=== PATIENT | female | born 1990 | race Caucasian/White ===

== ENCOUNTER 2017-03-07 22:09 | Emergency (ER) | payer MEDICAID ==
[2017-03-07] MEDS ORDERED: Sodium Chloride 0.9% 1,000 ML IV ONE (22:34)
[2017-03-07 22:58] LABS: BASO # 0.1 K/uL (0.0-0.2); BASO % 0.7 % (0.0-2.0); EOS # 0.4 K/uL (0.0-0.7); EOS % 4.7 % (0.0-4.0); HEMATOCRIT 30.9 % (34.0-47.0); LYMPH # 2.9 K/uL (1.0-4.3); LYMPH % 30.8 % (20.0-40.0); MEAN CORPUSCULAR HEMOGLOBIN 30.6 pg (27.0-31.0); MEAN CORPUSCULAR HGB CONC 34.7 g/dL (33.0-37.0); MONO # 0.7 K/uL (0.0-0.8); MONO % 7.7 % (0.0-10.0); NRBC % 0.1 % (0.0-2.0); WHITE BLOOD COUNT 9.3 K/uL (4.8-10.8)
[2017-03-07 23:07] LABS: CHLORIDE 102 mmol/L (98-107); POTASSIUM 3.6 mmol/L (3.6-5.2); SODIUM 138 mmol/L (132-148)
[2017-03-07 23:08] LABS: INR 0.9
[2017-03-07 23:09] LABS: ALB/GLOB RATIO 1.1 (1.0-2.1); ALKALINE PHOSPHATASE 53 U/L (38-126); ALT/SGPT 26 U/L (9-52); AST/SGOT 19 U/L (14-36); BILIRUBIN,TOTAL 0.4 mg/dL (0.2-1.3); BLOOD UREA NITROGEN 7 mg/dL (7-17); CARBON DIOXIDE 20 mmol/L (22-30); GFR AFRICAN-AMERICAN > 60; TOTAL PROTEIN 6.9 g/dL (6.3-8.3)
[2017-03-07 23:10] LABS: CALCIUM 8.5 mg/dl (8.6-10.4); GLUCOSE,RANDOM 93 mg/dL (65-105); URINE BILIRUBIN NEGATIVE (NEGATIVE); URINE BLOOD NEGATIVE (NEGATIVE); URINE COLOR Colorless (YELLOW); URINE GLUCOSE (UA) NORMAL (Normal); URINE KETONE NEGATIVE (NEGATIVE); URINE LEUKOCYTE ESTERASE NEG Leu/uL (Negative); URINE PROTEIN NEGATIVE (NEGATIVE); URINE UROBILINOGEN NORMAL mg/dL (0.2-1.0)
--- NOTE | 2017-03-07 23:44 | C.PDOC ---
History Of Present Illness 26 year old female presents to the ED with complaints of lower abdominal cramping "for some time." She is 17 weeks , , and recently had a normal visit at OB's office. Patient denies vaginal bleeding or other complaints at this time. Time Seen by Provider: 03/07/17 23:15 Chief Complaint (Nursing): Abdominal Pain History Per: Patient History/Exam Limitations: no limitations Onset/Duration Of Symptoms: Persistent Current Symptoms Are (Timing): Still Present Location Of Pain/Discomfort: Suprapubic Radiation Of Pain To:: None Quality Of Discomfort: Cramping Associated Symptoms: denies: Fever, Chills, Nausea, Vomiting, Urinary Symptoms Exacerbating Factors: None Alleviating Factors: None Recent travel outside of the [place]: No Abnormal Vaginal Bleeding: No : 3 Para: 2 Past Medical History Reviewed: Historical Data, Nursing Documentation, Vital Signs Vital Signs: Last Vital Signs Temp 97.5 F L 03/08/17 01:04 Pulse 87 03/08/17 01:04 Resp 19 03/08/17 01:04 BP 125/78 03/08/17 01:04 Pulse Ox 100 03/08/17 01:04 - Medical History PMH: Anemia Surgical History: Hernia Repair, Tonsillectomy Family History: States: Unknown Family Hx - Social History Hx Tobacco Use: No Hx Alcohol Use: Yes Hx Substance Use: No - Immunization History Hx Tetanus Toxoid Vaccination: No Hx Influenza Vaccination: No Hx Pneumococcal Vaccination: No Review Of Systems Constitutional: Negative for: Fever, Chills Cardiovascular: Negative for: Chest Pain, Palpitations Respiratory: Negative for: Cough, Shortness of Breath Gastrointestinal: Positive for: Abdominal Pain (lower abdominal cramping ). Negative for: Nausea, Vomiting, Diarrhea Genitourinary: Negative for: Vaginal Bleeding Physical Exam - Physical Exam Appears: Non-toxic, No Acute Distress Skin: Warm, Dry Head: Atraumatic, Normacephalic Eye(s): bilateral: Normal Inspection Oral Mucosa: Moist Neck: Supple Chest: Symmetrical, No Deformity Cardiovascular: Rhythm Regular, No Murmur Respiratory: Normal Breath Sounds, No Rales, No Rhonchi, No Wheezing Gastrointestinal/Abdominal: Soft, Tenderness (minimal suprapubic tenderness), No Distention, No Guarding, No Rebound Extremity: Normal ROM, No Tenderness Neurological/Psych: Oriented x3 Gait: Steady ED Course And Treatment - Laboratory Results Result Diagrams: 03/07/17 22:55 03/07/17 22:55 O2 Sat by Pulse Oximetry: 98 (room air ) Progress Note: Labs and pelvis US was ordered. Patient refused any pain medications in ED and was given IV fluids. Disposition - Disposition Disposition: HOME/ ROUTINE Disposition Time: 01:00 Condition: STABLE Additional Instructions: please follow up with your doctor. return to er with worsening symptoms or concerns. Instructions: Threatened Miscarriage (ED), Acute Abdominal Pain (ED) Forms: [facility] (Frisian) - Clinical Impression Clinical Impression: Abdominal pain, Threatened miscarriage - Scribe Statement The provider has reviewed the documentation as recorded by the Scribe Abigail Paz All medical record entries made by the Barbieibe were at my direction and personally dictated by me. I have reviewed the chart and agree that the record accurately reflects my personal performance of the history, physical exam, medical decision making, and the department course for this patient. I have also personally directed, reviewed, and agree with the discharge instructions and disposition.
--- NOTE | 2017-03-08 00:47 | US ---
EXAM: US Uterus, Limited CLINICAL HISTORY: 26 years old, female; Pain; complicated by abdominal or pelvic pain; Lower; Second trimester; Gestational age or lmp: Unknown lmp; ; Additional info: Suprapubic pain, TECHNIQUE: Real-time ultrasound of the maternal uterus (limited) with image documentation. COMPARISON: No relevant prior studies available. FINDINGS: Fetus: A single live intrauterine gestation is present. Estimated age based on the current measurements is 17.4 weeks +/-9 days. The limited visualized anatomy appears within normal limits. Position: A venous cantrell is present within the placenta which measures 1.5 x 1.4 x 2.9 CM. position is variable. Heart rate: heart motion observed at 154-159 beats per minute. Placenta: The placenta is anterior. No previa. Cervix: Cervix measures at least 3.3 CM and appears closed. Adnexa: Left ovary measures 3.3 x 2.2 x 3.3 CM. Right ovary measures 2.0 x 2.5 x 2.3 CM. IMPRESSION: 1. Cervix measures at least 3.3 CM and appears closed. 2. A single live intrauterine gestation is present. 3. heart motion observed at 154-159 beats per minute. 4. Estimated age based on the current measurements is 17.4 weeks +/-9 days.
[2017-03-08 01:08] VITALS: BP 125/78; PULSE 87; RESP 19; TEMP 97.5
[2017-03-11 19:20] VITALS: O2SAT 98
== END 2017-03-08 01:08 | disposition home or self-care (01) ==
LOC: SUPCPDRO 22:09 → C.ER 22:09
DX: O20.0 Threatened abortion (principal); Z3A.17 17 weeks gestation of pregnancy
CPT/HCPCS: 76815; 80053; 81001; 84702; 85025; 85610; 85730; 86850; 86870; 86886; 86900; 96360; 99284; J7040

== ENCOUNTER 2017-05-10 09:05 | Emergency (ER) | payer MEDICAID, OTHER ==
[2017-05-10 09:53] LABS: RBC URINE < 1 /hpf (0-3); URINE BACTERIA RARE (<OCC); URINE BILIRUBIN NEGATIVE (NEGATIVE); URINE BLOOD NEGATIVE (NEGATIVE); URINE COLOR Yellow (YELLOW); URINE GLUCOSE (UA) NORMAL (Normal); URINE KETONE NEGATIVE (NEGATIVE); URINE LEUKOCYTE ESTERASE 1+ Leu/uL (Negative); URINE PROTEIN NEGATIVE (NEGATIVE); URINE UROBILINOGEN NORMAL mg/dL (0.2-1.0); WBC URINE 5 /hpf (0-5)
[2017-05-10 10:01] VITALS: BMI 24.8
[2017-05-10 14:17] VITALS: BP 108/70; PULSE 90
--- NOTE | 2017-05-10 22:59 | OBHP ---
Datetime: 05/10/2017 10:00 IP Adm Impression: , intrauterine IP Chief Complaint Other: diarrhea IP Adm Impression Other: Acute gastroenteritis IP Admit Plan: Discharge home Admit Comment, IP Provider: 26 y.o. , LMP unsure, MARIO 08/09/17 by adam at 8w 3d, EGA 27 weeks, C /O diarrhea since "last night" - 9 movements last night and up to 4 this morning. (+) mild crampy low er abdominal pain, only preceding the BM. Denies nausea, vomiting; (+) decreased appetite. Patient r [employer] bought macaroni salad 05/09/17 - the only thing she did not cook. No one else at home sick. (+) FM; denies LOF, VB, Ctx. care: pvt [employer] SUPERVIS[employer] Dr. Riana Collins, affiliated with [facility]. Last visit 05/09/17; next visit 06/06/17; denies issues. P Ob: x 2: both males, 2011, 7lb 7oz, [facility]; 2014, 7lb 4oz, [place], [place] noted for anti -Rho antibody. 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 clots - age 14/15; neveor on anticoagulant. 2) h/o blood transfusion, S/P d eliy 2014 PSH: 1) Age 14, tonsillectomy; 2) 2011, repair of umbilical hernia; 3) 2013, RLQ, subcutaneous ( "abdominal") cyst (general syrgery) NKDA Meds: PNV - QD Soc Hx: denies tobacco, illicit drug or EtOH use. Lives with FOB and sons; together x 11 years. 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 Fam Hx:Mother alive 51 y.o. - breast CA survivor, S/P left mastectomy; DM. Father alive 48 y.o. D M. Mat aunt, now 58 y.o. diagnosed Breast CA "a few months ago" - apparently metstatic P.E.: as above. WD in NAd. Awake, alert, oriented to time, person and place. Pleasant and cooperat david. Assessment: 26 y.o. P2, 27 weeks, acute gastroenteritis; unclear possible coagulapathy versus bloo d dyscrasias. Patient advised to follow up with senior commercial loan officer for a more indepth evaluation. FHR appr opriate for gestational age. Patient advised to observe, small frequent meals: rice, tea/ toast; ban anas; coconut water, gatorade; and to abstain fro mgreasy, fatty foods. Clinically stable. Plan: 1) IVFs 2) U/A Addendum: 1400 hours U/A: 1+ leuk esterase; all else negative Assessment: 26 y.o P2, acute gastroenteritis, - no BM since in Ob-ED. Feels well after IV hydratio n. Clinically stable. Plan: 1) As above 2) Discharge home 3) S/S PTL 4) Keep scheduled appointments, contact priv OB in 2-3 days Pelvic Type - PN: Adequate Extremities - PN: Normal Abdomen - PN: Normal Back - PN: Normal Breast - PN: Not Done Lungs - PN: Normal Heart - PN: Normal Thyroid - PN: Not Done Neurologic - PN: Normal HEENT - PN: Normal General - PN: Normal FHR - Baseline A Provider: 145 Contraction Comments Provider: none Comments, ACOG Physical Exam: Abdomen: Gravid. Soft. Non tender, fundal height 27 cm All other systems reviewed - as per HPI Gestation - Est Wks by US: 27.0 EGA AdmitDate IP: 27.0 Vital Signs Provider: Reviewed; Within Normal Limits IP Chief Complaint: Other NICHD Decel Fetus A IP Provider: None Dilatation, Provider: 0 Effacement, Provider: 30 Station, Provider: -3 Genitourinary Exam: Normal DTRs - PN: Not Done
== END 2017-05-10 10:17 | disposition home or self-care (01) ==
LOC: C.EROB 09:05
DX: O26.892 Other specified pregnancy related conditions, second trimester (principal); K52.9 Noninfective gastroenteritis and colitis, unspecified; Z3A.27 27 weeks gestation of pregnancy

== ENCOUNTER 2017-06-28 13:12 | Emergency (ER) | payer OTHER ==
[2017-06-28 13:41] VITALS: BMI 24.6
[2017-06-28] MEDS ORDERED: Lactated Ringer's 1,000 ML IV SCH ×2 (13:45→13:54)
[2017-06-28 13:54] LABS: SQUAMOUS EPITHIAL 12 /hpf (0-5); URINE BACTERIA RARE (<OCC); URINE BILIRUBIN NEGATIVE (NEGATIVE); URINE BLOOD NEGATIVE (NEGATIVE); URINE CLARITY Hazy (Clear); URINE COLOR Yellow (YELLOW); URINE GLUCOSE (UA) NORMAL (Normal); URINE LEUKOCYTE ESTERASE TRACE Leu/uL (Negative); URINE NITRATE NEGATIVE (NEGATIVE); URINE PROTEIN NEGATIVE (NEGATIVE); URINE UROBILINOGEN NORMAL mg/dL (0.2-1.0)
--- NOTE | 2017-06-28 13:59 | OBHP ---
Datetime: 06/28/2017 13:40 IP Adm Impression: , intrauterine IP Admit Plan: Observation/Evaluation Admit Comment, IP Provider: at 34+weks came with c/o pelvic pressure and cramping since midnigh t, no vb, lof+fm.no dysuria obhx 2 x pmh den med pnv all nkda psh tonsilectomy soch de ve closed a/p at 34weks ctxs npo/ivf ua cont yessi and efm cont close observation Pelvic Type - PN: Adequate Extremities - PN: Normal Abdomen - PN: Normal Back - PN: Normal Breast - PN: Normal Lungs - PN: Normal Heart - PN: Normal Thyroid - PN: Normal Neurologic - PN: Normal HEENT - PN: Normal General - PN: Normal FHR - Baseline A Provider: 140 Contraction Comments Provider: irrg IP Hx Assessment: The History has been Reviewed and is Current EGA AdmitDate IP: 34.0 Vital Signs Provider: Reviewed; Within Normal Limits IP Chief Complaint: Maternal discomfort NICHD Variability Prov Fetus A: Moderate 6-25bpm NICHD Accel Fetus A IP Provider: 10X10 FHR Category Provider Fetus A: Category I Dilatation, Provider: 0 Effacement, Provider: 0 Station, Provider: -3 Genitourinary Exam: Normal DTRs - PN: Normal
--- NOTE | 2017-06-28 15:30 | OBHP ---
Datetime: 06/28/2017 15:27 Admit Comment, IP Provider: ptwas examined at bed side.feels good,no pain or vb ve closed x 2 ua neg plan dc home ptl given po hyraton f/u in 2days FHR - Baseline A Provider: 130 Contraction Comments Provider: none Vital Signs Provider: Reviewed; Within Normal Limits NICHD Variability Prov Fetus A: Moderate 6-25bpm NICHD Accel Fetus A IP Provider: 15X15 FHR Category Provider Fetus A: Category I Dilatation, Provider: 0 Effacement, Provider: 0 Station, Provider: -3 Datetime: 06/28/2017 13:40 EGA AdmitDate IP: 34.0
--- NOTE | 2017-06-28 15:32 | OBDCSUM ---
Datetime: 06/28/2017 15:30 Discharged to, Provider: Home Follow up at, Provider: Primary OB- Dr.Moon Brown Instr Diet: Regular Discharge Time: 06/28/2017 15:35 Follow up in weeks, Provider: Jul 06 as previously scheduled. Disch Referrals: None Datetime: 06/28/2017 15:29 Discharged to, Provider: Home Follow up at, Provider: 2-3days Follow up in weeks, Provider: clinic Discharge Comment, Provider: dc home ptl given po hyraton f/u in 2days Discharge Diagnosis Prov Other: 34week nst ctxs
== END 2017-06-28 15:40 | disposition home or self-care (01) ==
LOC: C.EROB 13:12
DX: O47.02 False labor before 37 completed weeks of gestation, second trimester (principal); Z3A.34 34 weeks gestation of pregnancy
CPT/HCPCS: 81001; 96360; 96372; 99283; J3105; J7120